=== PATIENT | male | born 1985 | race African-American/Black ===

== ENCOUNTER 2020-08-21 08:13 | Day surgery (SDC) | payer BC ==
[~2020-08-21] VITALS: Ht 175.3 cm; Wt 72.7 kg
[~2020-08-21 08:13] MED LIST: AMBIEN 10MG10 MG; CELEXA 20MG20 MG/TAB PO; DESYREL 50MG50 MG PO; FLAGYL500 MG PO; FORFIVO XL450 MG PO; LEVAQUIN 750MG750 M1 PO; LORTAB 5/500 501 TAB PO; MOTRIN 600600 MG/TAB PO; NO HOME MEDICATIONS; PERCOCET 325 MG1 TA2 PO; PROZAC60 MG PO; ZOFRAN 4MG T4 MG/TAB PO; ZOFRAN ODT4 MG PO
[2020-08-21] MEDS ORDERED: CARAFATE 1GM1 G PO (12:12)
[2020-08-21 12:25] VITALS: BP 121/81; PULSE 58; TEMP 97.5
[2020-08-21 12:30] VITALS: BP 122/86; PULSE 59
[2020-08-21 12:45] VITALS: BP 109/91; PULSE 64
[2020-08-21 13:00] VITALS: BP 112/75; PULSE 65
[2020-08-21 16:00] VITALS: BP 112/75
== END 2020-08-21 13:15 | disposition home or self-care (01) ==
LOC: COL.ER 08:13 → SDCO 12:04
DX: R13.10 Dysphagia, unspecified (principal); F41.9 Anxiety disorder, unspecified; F43.10 Post-traumatic stress disorder, unspecified; Z79.899 Other long term (current) drug therapy; Z20.822 Contact with and (suspected) exposure to COVID-19
CPT/HCPCS: J1885; J2704; J3010